=== PATIENT | male | born 1955 | race Caucasian/White ===

== ENCOUNTER 2017-02-24 17:25 | Emergency (ER) | payer OTHER ==
[~2017-02-24] VITALS: Ht 177.8 cm; Wt 108.8 kg
[~2017-02-24 17:25] MED LIST: LISINOPRIL10 MG PO; METHADONE10 MG; METOPROLOL SUC100 MG PO; NEURONTIN300 MG; PRILOSEC40 MG PO; SIMVASTATIN20 MG PO
[2017-02-24 18:30] LABS: HEMATOCRIT 43.9 % (38.0-50.0); MCH 30.9 PG (29.0-34.0); MCHC 33.5 G/DL (30.0-36.0); MCV 92.4 FL (86-99); MEAN PLAT.VOLUME 8.6 uM^3 (9.0-12.4); PLATELET COUNT 159 K/uL (156-360); RBC DIS.WIDTH-CV 11.9 % (11.8-14.6); RED BLOOD COUNT 4.75 M/uL (4.00-5.50); WHITE BLOOD COUNT 8.5 K/uL (4.1-10.2)
[2017-02-24 18:38] LABS: CHLORIDE 104 mEq/L (99-109); POTASSIUM 4.3 mEq/L (3.7-5.4); SODIUM 139 mEq/L (136-147)
[2017-02-24 18:40] LABS: GLUCOSE 171 mg/dL (70-99)
[2017-02-24 18:41] LABS: ANION GAP 10 MEQ/L (2-14)
[2017-02-24 18:43] LABS: GFR ESTIMATE (CALCULATED) > 59 mL/min/
[2017-02-24 18:44] LABS: UREA NITROGEN (BUN) 26 mg/dL (9-23)
[2017-02-24 20:45] LABS: TROP-I INTERPRETATION NEGATIVE; TROPONIN-I < 0.01 ng/mL (0.0-0.30)
[2017-02-24 21:38] LABS: TROP-I INTERPRETATION NEGATIVE; TROPONIN-I < 0.01 ng/mL (0.0-0.30)
[2017-02-24 22:15] VITALS: BP 120/80
== END 2017-02-24 22:17 | disposition home or self-care (01) ==
LOC: EME 17:25
PROVIDERS: Emergency Medicine
DX: R55 Syncope and collapse (principal); I10 Essential (primary) hypertension; E78.5 Hyperlipidemia, unspecified; Z79.891 Long term (current) use of opiate analgesic; Z87.891 Personal history of nicotine dependence; I49.3 Ventricular premature depolarization
CPT/HCPCS: 71020; 80048; 83880; 84484; 85027; 93005